=== PATIENT | female | born 1985 | race Caucasian/White ===

== ENCOUNTER 2021-09-23 13:52 | Emergency (ER) | payer OTHER, SELFPAY ==
--- NOTE | ~2021-09-23 | XR_ITS ---
EXAMINATION: XR shoulder RT min 2V EXAM DATE: 09/23/2021 16:09 INDICATION: Right shoulder pain, one year. States injury 1 year ago. TECHNIQUE: The following right shoulder projections obtained: frontal projection with internal rotati on, frontal projection with external rotation, Grashey, and scapular Y view (4+ views). There is no prior study for comparison. FINDINGS: No evidence of right shoulder rotator cuff calcific tendinosis. Unremarkable right jade ohumeral and acromioclavicular joints. There are no acute fractures or dislocations identified. Ther e is no subcutaneous gas. The soft tissue is unremarkable. There are no radiopaque foreign bodies. IMPRESSION: 1. Unremarkable right shoulder exam. Reviewed, dictated and finalized at location [facility]
[2021-09-23 13:57] VITALS: BP 118/69; PULSE 72; RESP 18; TEMP 36.3; O2SAT 100
[2021-09-23 15:09] LABS: Basophils Percent Auto 0.6 % (0.2-1.2); Eosinophils Absolute Auto 0.1 K/mm3 (0-0.3); Eosinophils Percent Auto 1.4 % (0-4.4); Hematocrit 39.8 % (37.0-47.0); Hemoglobin 13.7 g/dL (12.0-15.0); Immature Granulocyte Absolute 0.02 K/mm3 (0.00-0.031); Immature Granulocyte Percent A 0.3 % (0-0.5); Lymphocytes Percent Auto 32.4 % (18.3-44.2); Mean Corpuscular HGB Conc 34.4 g/dl (32-36); Mean Corpuscular Hemoglobin 30.3 pg (26-34); Mean Corpuscular Volume 88.1 fl (80-100); Mean Platelet Volume 11.1 fl (7.4-10.4); Monocytes Absolute Auto 0.5 K/mm3 (0.1-0.6); Monocytes Percent Auto 6.9 % (2.6-8.5); Neutrophils Absolute Auto 4.2 K/mm3 (1.3-6.7); Neutrophils Percent Auto 58.4 % (45.5-73.1); Platelet Count Result 203 k/mm3 (150-375); Red Blood Count 4.52 M/mm3 (4.2-5.4); Red Cell Distribution Width 12.3 % (11.5-14.5); White Blood Count 7.1 K/mm3 (4.5-10.0)
[2021-09-23 15:10] LABS: Add Urine Microscopic? NO; Appearance Urine Clear (Clear); Bilirubin Urine Negative (Negative); Blood Urine Negative (Negative); Color Urine Straw (Yellow); Glucose Urine UA Negative (Negative); Ketones Urine Negative (Negative); Leukocyte Esterase Ur Negative LEU/UL (Negative); Nitrate Urine Negative (Negative); Protein Urine Negative (Negative); Specific Grav Ur 1.005 (1.001-1.035); Urobilinogen Urine Negative mg/dL (<2.0)
[2021-09-23 15:21] LABS: Ethanol < 10 mg/dL (<10)
[2021-09-23 15:25] LABS: Amphetamine Screen Urine Negative (Negative); Barbiturate Screen Urine Negative (Negative); Benzodiazepines Screen Urine Negative (Negative); Cannabinoid Screen Urine Negative (Negative); Cocaine Screen Urine Negative (Negative); Methadone Screen Urine Negative (Negative); Opiate Screen Urine Negative (Negative); Phencyclidine Screen Urine Negative (Negative)
[2021-09-23 15:48] LABS: Alanine Aminotransferase 18 U/L (4-35); Albumin Level 4.8 g/dL (3.5-5.1); Alkaline Phosphatase 48 U/L (38-126); Anion Gap 9 mmol/L (8-16); Aspartate Amino Transferase 27 U/L (14-36); Bilirubin,Total 0.5 mg/dL (0.2-1.3); Blood Urea Nitrogen 15 mg/dL (7-17); Calcium 9.6 mg/dL (8.4-10.2); Carbon Dioxide 27 mmol/L (22-30); Chloride 103 mmol/L (98-107); Estimated CRCL calculation 114 ml/min; Estimated Glomerular Filt Rate > 60; Glucose 91 mg/dL (65-110); Potassium 3.8 mmol/L (3.4-5.0); Sodium 139 mmol/L (137-145)
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
[2021-09-23] MEDS: ACETAMINOPHEN 500 MG TABLET 1000 MG PO (16:32)
--- NOTE | 2021-09-23 18:47 | PC.NURSE ---
[facility] called and stated they are at capacity
[2021-09-23 18:48] LABS: EDCOVIDSCREEN Negative (Negative)
[2021-09-23 19:41] VITALS: BP 141/79; PULSE 87; RESP 18; TEMP 36.5; O2SAT 97
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
--- NOTE | 2021-09-23 20:28 | PC.NURSE ---
patient found outside room multiple times. pt easily redirected, but not staying in room as requested. per DAXA Rossi - place elopement precautions on pt.
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
--- NOTE | 2021-09-23 21:32 | PC.NURSE ---
Followed up with [facility], new chart with new COVID result to be faxed, facility to be called.
--- NOTE | 2021-09-23 23:30 | PC.NURSE ---
[facility] unable to accept pt due to involuntary status and acuity at facility. [facility] requesting a call back if pt becomes voluntary.
--- NOTE | 2021-09-23 23:45 | PC.NURSE ---
Pt becoming increasingly agitated stating, You can't hold me here, it's illegal. I have a life. 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 ER Security called as a precautionary measure.
[2021-09-24] MEDS: WATER, STERILE FOR INJECTION 10 ML VIAL XX (00:09)
[2021-09-24] MEDS: OLANZapine 10 MG INJ VIAL IM (00:09)
[2021-09-24] MEDS: LORazepam INJ (*CRX) 2 MG/ML VIAL IM (00:09)
[2021-09-24 06:35] VITALS: BP 134/72; PULSE 79; RESP 16; O2SAT 98
--- NOTE | 2021-09-24 07:25 | PC.NURSE ---
assumed care of pt. Pt is sleeping. Sitter is at door.
--- NOTE | 2021-09-24 08:12 | PC.NURSE ---
Joanie from [facility] called to inquire about pt. States she will start calling around to look for placement
--- NOTE | 2021-09-24 08:37 | PC.NURSE ---
Per Joanie at [facility], information faxed to [facility] [phone]
--- NOTE | 2021-09-24 09:53 | PC.NURSE ---
Joanie from [facility] called and requested information faxed to [facility] [phone]
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
--- NOTE | 2021-09-24 11:00 | PC.NURSE ---
This nurse assumed care for the patient. Patient is currently resting in her bed. Awaiting to hear for a bed from [facility].
--- NOTE | 2021-09-24 17:57 | PC.NURSE ---
SPOKE WITH [facility],STATED WILL HAVE SOMEONE COME OUT FOR RE-EVALUATION.
[2021-09-24] MEDS: OLANZapine DISPERTAB 5 MG 10 MG PO (19:12)
[2021-09-24] MEDS: ACETAMINOPHEN 325 MG TABLET 650 MG PO (20:49)
--- NOTE | 2021-09-25 04:32 | PC.NURSE ---
No accepting facilities at this time. pt resting. even chest rise and fall noted.
[2021-09-25 04:35] VITALS: BP 125/58; PULSE 73; RESP 18; O2SAT 97
--- NOTE | 2021-09-25 07:30 | PC.NURSE ---
Shyann from crisis called at this time for update of patient. Reports she would like to know how the patient presents today when she wakes up and see about potential discharge home today, or if she will continue to seek placement. Patient currently resting on cot. Will continue to monitor.
[2021-09-25 08:15] VITALS: PULSE 80; RESP 18; O2SAT 99
--- NOTE | 2021-09-25 10:57 | PC.NURSE ---
Received update from [facility] healthcare economics manager that [facility] denied patient admission to their facility. To update
--- NOTE | 2021-09-25 11:15 | PC.NURSE ---
Patient update called to [facility] to Sakina. Informed her of patient being denied to [facility].
--- NOTE | 2021-09-25 11:39 | PC.NURSE ---
Buck at [facility] request refax of chart.
--- NOTE | 2021-09-25 11:44 | PC.NURSE ---
Sakina from [facility] requesting we fax patient chart to [facility] at [phone]
[2021-09-25] MEDS: ACETAMINOPHEN 325 MG TABLET 650 MG PO (12:15)
[2021-09-25 12:20] VITALS: BP 139/77; PULSE 92; RESP 15; O2SAT 100
--- NOTE | 2021-09-25 12:22 | PC.NURSE ---
Spoke with Sakina at [facility] to get clarification. Pt is not suicidal or homicidal, requesting to leave at this time. Per Sakina, pt will be an involuntary admit due to psychosis and distorted reality. Shyann from [facility] is headed to [facility] for another client. [facility]ina to have Shyann check in with RN when she arrives.
--- NOTE | 2021-09-25 12:26 | PC.NURSE ---
Shyann from [facility] updated on patient. She is going to re-evaluate patient today.
--- NOTE | 2021-09-25 12:36 | PC.NURSE ---
Buck from [facility] requesting to speak with patient. Will transfer call to hallway phone.
--- NOTE | 2021-09-25 14:24 | PC.NURSE ---
Buck from [facility] called. Pt has been accepted. Accepting physician is Dr Washington - room 107-1 Needs involuntary petition refaxed. Fax report to [phone] Call report [phone] for nurse to nurse
--- NOTE | 2021-09-25 14:37 | PC.NURSE ---
Spoke with patient informing her that she has a bed at [facility]. Pt stated she will not go, to get out of her face and called RN obscene names. Explained to patient that according to providers and [facility] regional vice president life sales, she is an involuntary admission at this time. legal support analyst aware. Sitter at bedside.
--- NOTE | 2021-09-25 15:02 | PC.NURSE ---
Pt refused oral ativan. Pt is agitated. Called [place] police who are present at bedside. Explained she is an involuntary admission. Nurse aerospace project manager and charge nurse aware. Pt attempted to leave, was redirected into room.
--- NOTE | 2021-09-25 15:14 | PC.NURSE ---
Spoke with Radha, Nurse at [facility]. Refax involuntary admission.
--- NOTE | 2021-09-25 15:22 | PC.NURSE ---
Neela, ward secretary, faxing involuntary admission papers to [facility]
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
--- NOTE | 2021-09-25 15:48 | PC.NURSE ---
Buck at [facility] stated he needs some changes to involuntary admission paperwork. Given charge phone number to clarify. Rhys mothers helper, speaking with charge nurse at this time about clarifications.
--- NOTE | 2021-09-25 16:03 | PC.NURSE ---
[facility] called, Confirmed patient has a bed at [facility]
== END 2021-09-25 16:15 ==
PROVIDERS: Physician Assistant; Emergency Provider Emergency Medicine
DX: F23 Brief psychotic disorder (principal); Z20.822 Contact with and (suspected) exposure to COVID-19
CPT/HCPCS: 36415; 73030; 80053; 80307; 81003; 81025; 84443; 85025; 87426; 96372; 99285; A9270; C9803; J2060